=== PATIENT | male | born 1980 | race Two or more races ===

== ENCOUNTER 2024-03-16 11:36 | Emergency (ER) | payer SELFPAY, MEDICAID ==
[~2024-03-16] VITALS: Ht 182.9 cm; Wt 98.6 kg
[2024-03-16 12:54] LABS: Basophils # (auto) 0 10 ^3/uL (0-0.2); Basophils % (auto) 0.6 % (0.0-2.0); Eosinophils # (auto) 0.1 10 ^3/uL (0-0.8); Eosinophils % (auto) 0.7 % (0.0-7.0); Hematocrit 42.9 % (41.0-53.0); Lymphocytes # (auto) 1.5 10 ^3/uL (0.4-5.4); Lymphocytes % (auto) 19.1 % (10.0-50.0); Mean Corpuscular Hemoglobin 31.9 pg (28.0-32.0); Mean Corpuscular Hgb Conc. 34.9 g/dL (32.0-36.0); Mean Corpuscular Volume 91.5 fL (80.0-100.0); Monocytes # (auto) 0.6 10 ^3/uL (0-1.3); Monocytes % (auto) 7.7 % (0.0-12.0); Neutrophils # (auto) 5.6 10 ^3/uL (1.6-8.6); Neutrophils % (auto) 71.9 % (37.0-80.0); Nucleated Red Blood Cells % 0.1 %; Platelet Count (auto) 310 10^3/uL (140-450); Red Blood Cells 4.69 10^6/uL (4.5-5.90); Red Cell Distribution Width 12.4 % (11.8-14.3); White Blood Cell 7.7 10^3/uL (4.4-10.8)
--- NOTE | 2024-03-16 13:00 | DVH ---
XY CHEST TWO VIEWS ROUTINE CLINICAL HISTORY: cp COMPARISON: None TECHNIQUE: Frontal and lateral view of the chest was obtained FINDINGS: Lines and Tubes: None Lungs: No focal consolidation. Pleura: No effusion. No pneumothorax. Cardiomediastinal contours: Unremarkable Bones: No acute osseous abnormality. IMPRESSION: 1. No radiographic evidence of acute cardiopulmonary disease. HS:Y
[2024-03-16 13:05] LABS: Alanine Aminotransferase 25 U/L (7-40); Alkaline Phosphatase 73 U/L (46-116); Anion Gap 8 (5-15); Aspartate Aminotransferase 17 U/L (13-40); BUN/Creatinine Ratio 10.3 (10.0-20.0); Blood Urea Nitrogen 10 mg/dL (9-23); Calcium 10.2 mg/dL (8.7-10.4); Carbon Dioxide 24 mmol/L (20-31); Chloride 107 mmol/L (98-107); Potassium 3.9 mmol/L (3.5-5.1); Sodium 139 mmol/L (136-145)
[2024-03-16 13:06] LABS: Total Protein 7.5 g/dL (5.7-8.2)
[2024-03-16 13:07] LABS: Bilirubin, Total 2.1 mg/dL (0.2-1.0); Glucose 120 mg/dL (74-106)
--- NOTE | 2024-03-16 13:13 | ED.PDOC ---
History of Present Illness HPI Comments 43 y/o M, with a Hx of kerry, HLD, HTN, PUD, and tobacco use, is BIBA for c/o left-sided chest and shoulder pain, shortness of breath, lightheadedness, and nausea, today. Patient is a poor historian and endorses on having symptoms, intermittently, for the past year that began, initially, with his left shoulder pain. He states on most recent episode of symptoms taking place, today, while visiting family and being stressed. He describes pain as sharp in quality and having no recent injuries, strenuous activities, sick contact, travel, spoiled food intake, or substance use. He also informs on being seen and medially cleared by [facility] ED visit when evaluated for another isolated episode of symptoms on 03/08/24. He denies having any palpitations, cough, vomiting, fever, chills, tingling, or other associated symptoms or modifiers at this time. Per EMS report, patient was given 324 mg ASA and 0.4mg NTG en route. Chief Complaint: Chest Pain Time Seen by MD: 12:45 Primary Care Provider: JOHANNE Reviewed Notes: Nurses Notes, Medications, Allergies Allergies: Coded Allergies: NO KNOWN ALLERGIES (Unverified , 03/16/24) Information Source: Patient Mode of Arrival: EMS Severity: Moderate Timing: Hours Duration: Since onset Prehospital treatment: 12 Lead EKG, ASA, [employer], NTG, Other (18G LAC) Past Medical History PAST MEDICAL HISTORY: Asthma, High Lipids, HTN, PUD Surgical History: Hernia Repair Surgical History (Other): right hand, left pinky toe Sx Family History Family History: Unknown Social History Smoker: Cigarettes Alcohol: Denies ETOH Use Drugs: Denies Drug Use Lives In: Home Cardiovascular: reports: chest pain, lightheadedness Gastrointestinal: reports: nausea Musculoskeletal: reports: joint pain (left shoulder ) All Other Systems: Reviewed and Negative (negative unless otherwise stated in HPI) Physical Exam General Appearance: Mild Distress HEENT: Normal ENT Inspection, PERRL/EOMI Neck: Full Range of Motion, Non-Tender Respiratory: Lungs Clear, No Respiratory Distress, Normal Breath Sounds, NOT DONE (Tender left chest wall and also exquisite tenderness to the left anterior shoulder with limited morbidity) Cardiovascular: No Edema, No JVD, No Murmur, No Gallop, Normal Peripheral Pulses, Regular Rate/Rhythm Breast Exam: Deferred Gastrointestinal: No Organomegaly, Non Tender, No Pulsatile Mass, Normal Bowel Sounds, Soft Genitalia: Deferred Pelvic: Deferred Rectal: Deferred Extremities: Decreased range of motion, No calf tenderness, Normal capillary refill, Normal inspection, Non-tender, No pedal edema, Tender, Other (Left shoulder tendinitis) Neurologic: Alert, hem inspector II-XII nml as Tested, No Motor Deficits, Normal Affect, Normal Mood, No Sensory Deficits Cerebellar Function: Normal Reflexes: Normal Skin: Dry, Normal Color, Warm Peripheral Pulses: 1+ carotid (R), 1+ carotid (L) Lymphatic: No Adenopathy Was a procedure done? Was a procedure done?: No EKG EKG #1: Pulse Rate (adult): 90 Foster: Normal Cardiac Rhythm: NSR Block: None Hypertrophy: None ST: Normal EKG #2: Pulse Rate (adult): 64 [place]: Normal Cardiac Rhythm: NSR Block: None Hypertrophy: None ST: Normal Differential Dx Considerations may include: musculoskeletal pain, costochondritis, DE, X-Ray, Labs, Meds, VS Vital Signs Date Time Temp Pulse Resp B/P (MAP) Pulse Ox O2 Delivery O2 Flow Rate FiO2 03/16/24 13:13 64 03/16/24 12:56 64 03/16/24 11:41 90 03/16/24 11:38 98.2 96 19 123/53 (76) 96 Lab Test 03/16/24 14:42 03/16/24 12:50 03/16/24 11:45 Range/Units Troponin I High Sensitivity Pending < 3 L < 3 L </=54 ng/L White Blood Count 7.7 4.4-10.8 10^3/uL Red Blood Count 4.69 4.5-5.90 10^6/uL Hemoglobin 15.0 13.5-17.5 g/dL Hematocrit 42.9 41.0-53.0 % Mean Corpuscular Volume 91.5 80.0-100.0 fL Mean Corpuscular Hemoglobin 31.9 28.0-32.0 pg Mean Corpuscular Hemoglobin Concent 34.9 32.0-36.0 g/dL Red Cell Distribution Width 12.4 11.8-14.3 % Platelet Count 310 140-450 10^3/uL Mean Platelet Volume 8.0 6.9-10.8 fL Neutrophils (%) (Auto) 71.9 37.0-80.0 % Lymphocytes (%) (Auto) 19.1 10.0-50.0 % Monocytes (%) (Auto) 7.7 0.0-12.0 % Eosinophils (%) (Auto) 0.7 0.0-7.0 % Basophils (%) (Auto) 0.6 0.0-2.0 % Neutrophils # (Auto) 5.6 1.6-8.6 10 ^3/uL Lymphocytes # (Auto) 1.5 0.4-5.4 10 ^3/uL Monocytes # (Auto) 0.6 0-1.3 10 ^3/uL Eosinophils # (Auto) 0.1 0-0.8 10 ^3/uL Basophils # (Auto) 0 0-0.2 10 ^3/uL Nucleated Red Blood Cells 0.1 % Sodium Level 139 136-145 mmol/L Potassium Level 3.9 3.5-5.1 mmol/L Chloride Level 107 98-107 mmol/L Carbon Dioxide Level 24 20-31 mmol/L Anion Gap 8 5-15 Blood Urea Nitrogen 10 9-23 mg/dL Creatinine 0.97 0.700-1.30 mg/dL Glomerular Filtration Rate Calc 99 >90 mL/min BUN/Creatinine Ratio 10.3 10.0-20.0 Serum Glucose 120 H 74-106 mg/dL Calcium Level 10.2 8.7-10.4 mg/dL Magnesium Level 2.0 1.6-2.6 mg/dL Total Bilirubin 2.1 H 0.2-1.0 mg/dL Aspartate Amino Transferase (AST) 17 13-40 U/L Alanine Aminotransferase (ALT) 25 7-40 U/L Alkaline Phosphatase 73 46-116 U/L Total Protein 7.5 5.7-8.2 g/dL Albumin 5.0 H 3.2-4.8 g/dL [address] [address] Ph: [phone] DIAGNOSTIC IMAGING Diagnostic Imaging Report : [id number] Signed PATIENT: LOKI LEWIS ACCT: [id number] UNIT: [id number] : 1980 LOC: ER ROOM / BED: / AGE / SEX: 43 / M ADM STATUS: REG ER SERVICE 1213 ORDERING PHYSICIAN: JEZ ESCALONA MD PROCEDURE(s): CXR2 - CHEST TWO VIEWS ROUTINE REASON: cp ORDER NUMBER(s): [id number], ACCESSION NUMBER(s): [id number] XY CHEST TWO VIEWS ROUTINE CLINICAL HISTORY: cp COMPARISON: None TECHNIQUE: Frontal and lateral view of the chest was obtained FINDINGS: Lines and Tubes: None Lungs: No focal consolidation. Pleura: No effusion. No pneumothorax. Cardiomediastinal contours: Unremarkable Bones: No acute osseous abnormality. IMPRESSION: 1. No radiographic evidence of acute cardiopulmonary disease. HS:Y ATED BY: COURTNEY OLIVAS DO DICTATED DATE/TIME: 03/16/241257 SIGNED BY: COURTNEY OLIVAS DO SIGNED DATE/TIME: 03/16/241257 CC: X-Ray, Labs, Meds, VS Comment Seen in the emergency department eventful patient came in complaining of chest pain for 3 hours patient is under stress is also complaining of left shoulder pain and nausea on the March 08, 2024 he was a cm has a full workup which was normal per patient blood pressure 123/58 Patient came by ambulance receive aspirin and nitroglycerin The chest x-ray is normal EKG shows normal sinus rhythm at 90 Troponin three and three CBC normal CMP blood sugar is high and 20 rest is normal Magnesium 2.1 Urine pending X-ray to the shoulder does not show any tendonitis the chest x-ray is normal Patient will be discharged home to follow up with his PCP Time of 1ST Reevaluation: 13:15 Reevaluation 1ST: Unchanged Patient Education/Counseling: Diagnosis, Treatment Family Education/Counseling: No Family Present Departure 1 Departure Time of Disposition: 14:55 Impression: Primary Impression: Musculoskeletal chest pain Additional Impression: Bursitis of left shoulder Ruled Out: Pneumonia, Acute myocardial infarction Disposition: 01 HOME / SELF CARE / HOMELESS Condition: Fair Additional Instructions: Local heat and follow up with your PCP e-Prescriptions Cyclobenzaprine Hcl (Cyclobenzaprine Hcl) 10 Mg Tab 10 MG PO TID for 10 Days, #30 TAB Prov: JEZ ESCALONA MD 12/9/24 Diclofenac Potassium (Diclofenac Potassium) 50 Mg Tab 1 TAB PO TIDP for 10 Days, #30 TAB Prov: JEZ ESCALONA MD 03/16/24 Discharged With: Self Critical Care Note Critical Care Time?: No Stability Stability form required: No Heart Score Heart Score: Heart Score Response (Comments) Value History Slightly Suspicious 0 EKG Normal 0 Age <45 0 Risk Factors >3 or Hx ASHD 2 Troponin Normal limit 0 Total 2 I personally scribed for JEZ ESCALONA MD ([email or web address]) on 03/16/24 at 13:13. Electronically submitted by Archie Sanchez ([email or web address]). I personally scribed for JEZ ESCALONA MD ([email or web address]) on 03/16/24 at 13:14. Electronically submitted by Archie Sanchez ([email or web address]). JEZ ESCALONA MD Mar 16, 2024 13:13
--- NOTE | 2024-03-16 13:53 | DVH ---
X-ray left shoulder Technique: AP and internal rotation REASON FOR EXAM: Tendinitis left shoulder INDICATION: Tendinitis left shoulder FINDINGS: No fractures or dislocations. No erosions or periosteal reaction. Articular surfaces are sm ooth. IMPRESSION: 1. No bony pathology. No evidence of calcific tendinosis
[2024-03-16] MEDS: SODIUM CHLORIDE 0.9% 1,000 ML IV ONE (14:32)
[2024-03-16] MEDS ORDERED: CYCL-839 PO (15:22)
[2024-03-16] MEDS ORDERED: DICL50TA2 PO (15:22)
[2024-03-16 15:32] VITALS: BP 123/63; PULSE 92; RESP 17; TEMP 98.8; O2SAT 98
--- NOTE | 2024-03-17 13:05 | ECG ---
[facility] Test Date: 2024-03-16 Test Time: 12:56:51 Pat Name: LOKI LEWIS Department: ER Room: Gender: M Roll Icer: SUSHANT : 1980 Requested By: JEZ ESCALONA Order Number: [id number] Reading MD: Measurements Intervals [place] Rate: 64 P: 64 [place]: 152 QRS: 85 QRSD: 136 T: 50 QT: 376 QTc: 388 Interpretive Statements Sinus rhythm Atrial premature complex Nonspecific intraventricular conduction delay ST elev, probable normal early repol pattern Please click the below link to view image of tracing.
--- NOTE | 2024-03-17 13:05 | ECG ---
[facility] Test Date: 2024-03-16 Test Time: 11:41:16 Pat Name: LOKI LEWIS Department: er Room: Gender: M Small Business Consultant: neptali : 1980 Requested By: JEZ ESCALONA Order Number: [id number] Reading MD: Measurements Intervals [place] Rate: 90 P: 80 [place]: 140 QRS: 85 QRSD: 88 T: -10 QT: 350 QTc: 429 Interpretive Statements Sinus rhythm Borderline T wave abnormalities Baseline wander in lead(s) II,III,aVF,V2 Please click the below link to view image of tracing.
== END 2024-03-16 15:35 | disposition home or self-care (01) ==
LOC: EDBD 11:36 → ER 11:36
DX: R07.89 Other chest pain (principal); M75.52 Bursitis of left shoulder; I10 Essential (primary) hypertension; J45.909 Unspecified asthma, uncomplicated; E78.5 Hyperlipidemia, unspecified; F17.210 Nicotine dependence, cigarettes, uncomplicated; Z87.11 Personal history of peptic ulcer disease; Z88.6 Allergy status to analgesic agent; Z98.890 Other specified postprocedural states
CPT/HCPCS: 36415; 71046; 73030; 80053; 83735; 84484; 85025; 93005